=== PATIENT | female | born 1990 | race Caucasian/White ===

== ENCOUNTER 2017-02-11 14:58 | Emergency (ER) | payer MEDICAID ==
[2017-02-11 15:57] VITALS: BP 142/76
--- NOTE | 2017-02-14 14:00 | ER ---
DATE SEEN: 02/11/2017 CHIEF COMPLAINT: Cough. HISTORY: This 26-year-old, 20-week gestation, 2, para 1-0-0-0 single mother, nonsmoker, has not been feeling well for the last week. She notes she had a respiratory infection when coughing. Denies fever, shortness of breath, dyspnea on exertion, productive cough, chest pain, irregular heartbeat, syncope, near syncope, swelling in her ankles, history of DVTs, no previous surgery in the last 4 weeks or lying in bed for 3 days. PAST MEDICAL HISTORY: Negative. ALLERGIES: Negative. CURRENT MEDICATIONS: vitamins. REVIEW OF SYSTEMS: Otherwise negative. She has poor dentition. PHYSICAL EXAMINATION: VITAL SIGNS: Heart rate 86, respirations 16, blood pressure 110/76, 100% oxygen saturation on room air, temperature is 36.8 degrees centigrade. GENERAL: Alert mildly overweight woman with extensive carious teeth. I did not ask her if she had used amphetamines, but there is a suggestion that she might have used amphetamines in the past. No previous amphetamine use. She has bad teeth, but she denies using amphetamines. No cervical adenopathy. No thyromegaly. LUNGS: Clear to auscultation without rales, rhonchi, or wheezes. HEART: S1, S2. Regular rate and rhythm. No tachycardia. ABDOMEN: Soft. Fundus not measured, but quick-look ultrasound done. Fetus also demonstrates heart rate 140s and good heart rate. Male genitalia. Placenta superior. No evidence for placenta previa. EXTREMITIES: Without edema. No tenderness of vascular structures in lower extremities. ASSESSMENT: 1) Cough. 2) Cough secondary to viral upper respiratory and lower respiratory infection. 3) Nonsmoker. 4) 23-week gestation. 5) The size of baby suggests it is larger than this and/or could be macrosomia. PLAN: Use face mask. No medications during . No cough suppressants. No other kind of cough suppressants and drinks two quarts of water a day. Follow up with doctor in a week if not improved. For pain and discomfort use Tylenol, absolutely no ibuprofen. The patient was seen at 1515 hours. /[id number] LIANNE/SABAS CURRY
== END 2017-02-11 15:50 | disposition home or self-care (01) ==
LOC: FB.ED 14:58
DX: O99.512 Diseases of the respiratory system complicating pregnancy, second trimester (principal); J06.9 Acute upper respiratory infection, unspecified; Z86.718 Personal history of other venous thrombosis and embolism; Z3A.23 23 weeks gestation of pregnancy
CPT/HCPCS: 99282

== ENCOUNTER 2017-12-21 12:38 | Emergency (ER) | payer MEDICAID, OTHER ==
[2017-12-21] MEDS ORDERED: Ibuprofen 600 MG Tab PO ONE (12:59)
--- NOTE | 2017-12-21 13:02 | EDM.PDOC ---
ED HPI GENERAL MEDICAL PROBLEM - General Chief Complaint: Lower Extremity Injury/Pain Stated Complaint: TWISTED HER KNEE Time Seen by Provider: 12/21/17 13:00 Source of Information: Reports: Patient History Limitations: Reports: No Limitations - History of Present Illness INITIAL COMMENTS - FREE TEXT/NARRATIVE: Popped knee (per usual) and twisted at same time. Complains of medial left knee pain. Onset: Today Location: Reports: Upper Extremity, Left Quality: Reports: Dull Severity: Mild Improves with: Reports: None Worsens with: Reports: None - Related Data Allergies Allergy/AdvReac Type Severity Reaction Status Date / Time No Known Allergies Allergy Verified 12/21/17 13:29 Home Meds: Home Meds Acetaminophen/Diphenhydramine [Tylenol Pm Ex-Strength Caplet] 2 tab PO ASDIRECTED 02/11/17 [History] PNV95/Ferrous Fumarate/FA [ Tablet] 1 tab PO DAILY 02/11/17 [History] Past Medical History Other HEENT History: CYST IN EAR/HEARING AIDE. CLEFT LIP/PALATE - Past Surgical History Other HEENT Surgeries/Procedures: CYST REMOVAL IN EAR. /CLEFT LIP/PALATE Social & Family History - Family History Family Medical History: Noncontributory - Caffeine Use Caffeine Use: Reports: Coffee Review of Systems - Review of Systems Review Of Systems: ROS reveals no pertinent complaints other than HPI. ED EXAM, GENERAL - Physical Exam Exam: See Below Exam Limited By: No Limitations General Appearance: Alert, WD/WN, No Apparent Distress Nose: Normal Inspection Throat/Mouth: Normal Inspection Head: Atraumatic, Normocephalic Neck: Normal Inspection Respiratory/Chest: No Respiratory Distress Extremities: Limited Range of Motion (due to pain), Other (moderate tenderness to anteromedial left knee) Psychiatric: Normal Affect Skin Exam: Warm, Dry Course - Orders/Labs/Meds Orders: Active Orders 24 hr Category Date Time Status Arnulfo Bandage [RC] ONETIME Care 12/21/17 13:54 Ordered Knee 3V Lt [CR] Stat Exams 12/21/17 12:58 Taken Meds: Medications Discontinued Medications Generic Name Dose Route Start Last Admin Trade Name Freq PRN Reason Stop Dose Admin Ibuprofen 600 mg 12/21/17 12:59 Motrin PO 12/21/17 13:00 ONETIME ONE - Radiology Interpretation Free Text/Narrative:: Left Knee XR: NAD Departure - Departure Time of Disposition: 13:55 Disposition: Home, Self-Care 01 Condition: Good Clinical Impression: Strain of left knee - Discharge Information Instructions: Knee Sprain, Adult, [id number] Referrals: Cruz Worley MD [Primary Care Provider] - Forms: ED Department Discharge Additional Instructions: OTC Ibuprofen as needed. Ice, elevate, rest. Follow up with orthopedic surgery if symptoms don't improve 3 days. - Problem List & Annotations (1) Strain of left knee SNOMED Code(s): 457860583082 Code(s): S86.912A - STRAIN OF UNSP MUSC/TEND AT LOWER LEG LEVEL, LEFT LEG, INIT Status: Acute Current Visit: Yes Qualifiers: Encounter type: initial encounter Qualified Code(s): S86.912A - Strain of unspecified muscle(s) and tendon(s) at lower leg level, left leg, initial encounter - Problem List Review Problem List Initiated/Reviewed/Updated: Yes - My Orders Last 24 Hours: My Active Orders 12/21/17 12:58 Knee 3V Lt [CR] Stat 12/21/17 13:54 Arnulfo Bandage [RC] ONETIME - Assessment/Plan Last 24 Hours: My Active Orders 12/21/17 12:58 Knee 3V Lt [CR] Stat 12/21/17 13:54 Arnulfo Bandage [RC] ONETIME
--- NOTE | 2017-12-21 15:20 | CR ---
INDICATION: Left knee pain, twisted leg. LEFT KNEE: Three views of the left knee revealed no evidence of a fracture or dislocation. A minimal knee joint effusion may be present with slight prominence at the suprapatellar bursa. No other bone or joint abnormality was suggested. IMPRESSION: Suggestion of a minimal knee joint effusion with no acute fracture or dislocation identified. Report was called to Dr. Schmid at 1407 hours on 12/21/2016. ANTOINETTE
[2017-12-22 07:42] VITALS: BP 127/52
== END 2017-12-21 14:45 | disposition home or self-care (01) ==
LOC: FB.ED 12:38
DX: S86.912A Strain of unspecified muscle(s) and tendon(s) at lower leg level, left leg, initial encounter (principal); X50.1XXA Overexertion from prolonged static or awkward postures, initial encounter
CPT/HCPCS: 73562; 99283; A9270

== ENCOUNTER 2019-02-21 19:51 | Emergency (ER) | payer MEDICAID ==
[2019-02-21 20:06] VITALS: BP 112/69; PULSE 95
[2019-02-21] MEDS ORDERED: Ibuprofen Susp 100 MG/5 ML 5 ML UD Cup PO ONE (20:17)
[2019-02-21] MEDS ORDERED: Dexamethasone 4 MG/ML SDV PO ONE (20:17)
--- NOTE | 2019-02-21 20:17 | EDM.PDOC ---
ED HPI GENERAL MEDICAL PROBLEM - General Chief Complaint: ENT Problem Stated Complaint: TONSIL STONES Time Seen by Provider: 02/21/19 20:00 Source of Information: Reports: Patient History Limitations: Reports: No Limitations - History of Present Illness INITIAL COMMENTS - FREE TEXT/NARRATIVE: 28-year-old female with history of recurring sore throat for the past 2-3 months. She reports that sometimes the pain will sometimes be bilateral and sometimes one side versus the other. She has been seen in the walk-in clinic and by her primary doctor. She was told that she had tonsil stones in the past and she apparently has had negative strep screens related to these sore throats. She was fine until approximately 4 PM today when she developed onset of left-sided sore throat area she reports the pain was quite intense. She rated the pain as a 7/10. It is a sharp pain and seems to radiate to her left ear. The pain is worse with swallowing. No fevers or chills. No nausea or vomiting. No trouble breathing. She reports that she has been extruding some white stuff from her right tonsil previous to today. She apparently massages her tonsils intermittently. There are no other associated signs or symptoms. There are no other modifying factors. Onset: Today (4 PM) Duration: Constant Location: Reports: Neck (Left-sided throat) Quality: Reports: Sharp Severity: Moderate Improves with: Reports: Rest Worsens with: Reports: Other (Swallowing. Palpation.) Context: Reports: Other (No known inciting event.) Associated Symptoms: Reports: No Other Symptoms Treatments RESERVATIONIST: Reports: Other (see below) (Nothing) throat Pain Score (Numeric/FACES): 7 - Related Data Allergies Allergy/AdvReac Type Severity Reaction Status Date / Time No Known Allergies Allergy Verified 12/21/17 13:29 Home Meds: Home Meds NK [No Known Home Meds] 12/22/17 [History] Past Medical History HEENT History: Reports: Hard of Hearing Other HEENT History: CYST IN EAR/HEARING AIDE. CLEFT LIP/PALATE - Past Surgical History HEENT Surgical History: Reports: Myringotomy w Tube(s), Naso-Sinus Surgery, Oral Surgery (Multiple surgeries related to her cleft lip and palate), Other ( See Below) (Multiple left ear surgeries) Other HEENT Surgeries/Procedures: CYST REMOVAL IN EAR. /CLEFT LIP/PALATE Social & Family History - Tobacco Use Smoking Status *Q: Never Smoker - Caffeine Use Caffeine Use: Reports: Coffee - Alcohol Use Alcohol Use Frequency: Rarely - Living Situation & Occupation Occupation: Employed (Works at the [employer] in [place].) ED ROS ENT - Review of Systems Review Of Systems: See Below Constitutional: Reports: No Symptoms HEENT: Reports: Throat Pain (Left sided) Respiratory: Reports: No Symptoms Cardiovascular: Reports: No Symptoms GI/Abdominal: Reports: No Symptoms : Reports: No Symptoms Musculoskeletal: Reports: No Symptoms Skin: Reports: No Symptoms Neurological: Reports: No Symptoms Psychiatric: Reports: Anxiety Hematologic/Lymphatic: Reports: No Symptoms Immunologic: Reports: No Symptoms ED EXAM, ENT - Physical Exam Exam: See Below Exam Limited By: No Limitations General Appearance: Alert, WD/WN, Anxious, Moderate Distress Eye Exam: Bilateral Eye: EOMI, Normal Inspection, PERRL Ears: Normal External Exam, Other (Chronic changes of left ear canal and tympanic membrane both TMs appear noninfected.) Nose: Normal Inspection, Normal Mucousa, No Blood Mouth/Throat: Throat Swelling (Mild tonsillar prominence bilaterally. No erythema.). No: Tonsillar Erythema, Tonsillar Exudates Head: Atraumatic, Normocephalic Neck: Supple, Full Range of Motion, Other (Mildly tender along the left anterior cervical area. No masses. Trachea is midline.) Respiratory/Chest: No Respiratory Distress, Lungs Clear, Normal Breath Sounds, No Accessory Muscle Use, Chest Non-Tender Cardiovascular: Normal Peripheral Pulses, Regular Rate, Rhythm, No JVD GI/Abdominal: Normal Bowel Sounds, Soft, Non-Tender, No Organomegaly, No Mass Back: Normal Inspection Extremities: Normal Inspection, Normal Range of Motion, Non-Tender, No Pedal Edema, Normal Capillary Refill, Pedal Edema Neurological: Alert, Oriented, CN II-XII Intact, Normal Cognition, No Motor/ Sensory Deficits Skin: Warm, Dry, Intact, Normal Color, No Rash Course - Vital Signs Last Recorded V/S: Last Vital Signs Temp 36.7 C 02/21/19 20:00 Pulse 95 02/21/19 20:00 Resp 16 02/21/19 20:00 BP 112/69 02/21/19 20:00 Pulse Ox 98 02/21/19 20:00 - Orders/Labs/Meds Orders: Active Orders 24 hr Category Date Time Status CULTURE STREP A CONFIRMATION [] Stat Lab 02/21/19 20:19 Results STREP SCRN A RAPID W CULT CONF [] Stat Lab 02/21/19 20:19 Results Labs: Rapid strep screen was negative. Meds: Medications Discontinued Medications Generic Name Dose Route Start Last Admin Trade Name Courtney PRN Reason Stop Dose Admin Dexamethasone 8 mg 02/21/19 20:17 02/21/19 20:25 Dexamethasone PO 02/21/19 20:18 8 mg ONETIME ONE Administration Ibuprofen 400 mg 02/21/19 20:17 02/21/19 20:24 Motrin 100 Mg/5 Ml Susp PO 02/21/19 20:18 400 mg ONETIME ONE Administration - Re-Assessments/Exams Free Text/Narrative Re-Assessment/Exam: 02/21/19 20:43: The patient's rapid strep screen was negative. I am unsure why she is having the recurrent episodes of sore throat. I did give the patient Decadron 8 mg by mouth in the emergency department and the patient a take ibuprofen and Tylenol for pain and do warm saltwater gargles. She is encouraged to follow-up with the ENT doctor that has followed her for her ear problems and cleft lip and palate. Departure - Departure Time of Disposition: 20:48 Disposition: Home, Self-Care 01 Condition: Good Clinical Impression: Sore throat - Discharge Information Instructions: Sore Throat, [id number] Referrals: Cruz Worley MD [Primary Care Provider] - Forms: ED Department Discharge Additional Instructions: Your strep screen was negative. We did send the throat swab for confirmatory culture and if it is positive, we will call you. I am unsure why you are having the recurring sore throats. Your throat exam really did not show any significant abnormality. You were given Decadron in the emergency department to help with your pain and perceived swelling. You may also take ibuprofen and Tylenol as needed for pain. You should do warm saltwater gargles. You should follow-up with the chief engineer research in [place] to help you with your ear problems and your cleft lip and palate. Back to the emergency department for ability to swallow liquids, trouble breathing, unrelenting vomiting or any other concerning sign or symptom. - My Orders Last 24 Hours: My Active Orders 02/21/19 20:19 CULTURE STREP A CONFIRMATION [RM] Stat STREP SCRN A RAPID W CULT CONF [RM] Stat - Assessment/Plan Last 24 Hours: My Active Orders 02/21/19 20:19 CULTURE STREP A CONFIRMATION [RM] Stat STREP SCRN A RAPID W CULT CONF [] Stat
== END 2019-02-21 21:10 | disposition home or self-care (01) ==
LOC: FB.ED 19:51
DX: J02.9 Acute pharyngitis, unspecified (principal)
CPT/HCPCS: 87081; 87880; 99283; A9270; J1100

== ENCOUNTER 2020-11-24 23:10 | Emergency (ER) | payer BC, MEDICAID ==
[2020-11-24 23:23] VITALS: BP 154/95; PULSE 86
[2020-11-24] MEDS ORDERED: Amoxicillin/Clavulanate K 875-125 MG Tab PO STA (23:27)
[2020-11-24] MEDS ORDERED: traMADol 50 MG Tab PO STA (23:27)
[2020-11-24] MEDS ORDERED: Acetaminophen 500 MG Tab PO STA (23:27)
--- NOTE | 2020-11-24 23:28 | EDM.PDOC ---
ED HPI GENERAL MEDICAL PROBLEM - General Stated Complaint: LEFT EAR HURTS Time Seen by Provider: 11/24/20 23:15 Source of Information: Reports: Patient History Limitations: Reports: No Limitations - History of Present Illness INITIAL COMMENTS - FREE TEXT/NARRATIVE: Patient presented to the ED because of left ear pain which started this morning. There is no fever or chills, cough or cold symptoms. 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 - Related Data Allergies Allergy/AdvReac Type Severity Reaction Status Date / Time No Known Allergies Allergy Verified 02/21/19 22:07 Home Meds: Home Meds Amoxicillin/Clavulanate K [Augmentin 875-125 MG] 1 tab PO BID #20 tablet 11/24 [Rx] Past Medical History - Past Health History Medical/Surgical History: Denies Medical/Surgical History HEENT History: Reports: Hard of Hearing Other HEENT History: CYST IN EAR/HEARING AIDE. CLEFT LIP/PALATE TAX ACCOUNTANT History: Reports: - Past Surgical History HEENT Surgical History: Reports: Myringotomy w Tube(s), Naso-Sinus Surgery, Oral Surgery (Multiple surgeries related to her cleft lip and palate), Other (See Below) (Multiple left ear surgeries) Other HEENT Surgeries/Procedures: CYST REMOVAL IN EAR. /CLEFT LIP/PALATE Social & Family History - Family History Family Medical History: No Pertinent Family History - Caffeine Use Caffeine Use: Reports: Coffee - Living Situation & Occupation Occupation: Employed (Works at the [employer] in [place].) ED ROS ENT - Review of Systems Review Of Systems: See Below HEENT: Reports: Ear Pain Respiratory: Reports: No Symptoms Cardiovascular: Reports: No Symptoms Endocrine: Reports: No Symptoms GI/Abdominal: Reports: No Symptoms : Reports: No Symptoms Musculoskeletal: Reports: No Symptoms Skin: Reports: No Symptoms Neurological: Reports: No Symptoms ED EXAM, ENT - Physical Exam Exam: See Below Exam Limited By: No Limitations General Appearance: Alert, No Apparent Distress Ears: Normal External Exam, Hearing Grossly Normal, TM Bulging, TM Erythema Nose: Normal Inspection, Normal Mucousa, No Blood Mouth/Throat: Normal Inspection, Normal Gums, Normal Lips, Normal Oropharynx, Normal Teeth Head: Atraumatic, Normocephalic Neck: Normal Inspection, Supple, Non-Tender, Full Range of Motion Respiratory/Chest: No Respiratory Distress, Lungs Clear, Normal Breath Sounds, No Accessory Muscle Use, Chest Non-Tender Cardiovascular: Normal Peripheral Pulses, Regular Rate, Rhythm, No Edema, No Gallop, No JVD, No Murmur, No Rub GI/Abdominal: Normal Bowel Sounds, Soft, Non-Tender, No Organomegaly Rectal (Female) Exam: Normal Exam, Normal Rectal Tone Back: Normal Inspection, Full Range of Motion Course - Vital Signs Text/Narrative:: Tramadol 50 mg,2 po x1 Tylenol 1000 mg po x1 Augmentin 875 mg po x1 Last Recorded V/S: Last Vital Signs Temp 36.7 C 11/24/20 23:19 Pulse 86 11/24/20 23:19 Resp 16 11/24/20 23:19 BP 154/95 H 11/24/20 23:19 Pulse Ox 99 11/24/20 23:19 - Orders/Labs/Meds Meds: Medications Discontinued Medications Generic Name Dose Route Start Last Admin Trade Name Ducq PRN Reason Stop Dose Admin Acetaminophen 1,000 mg 11/24/20 23:27 Acetaminophen 500 Mg Tab PO 11/24/20 23:28 NOW STA Amoxicillin/Clavulanate Potassium 1 tab 11/24/20 23:27 Amoxicillin/Clavulanate K 875-125 Mg Tab PO 11/24/20 23:28 NOW STA Tramadol HCl 100 mg 11/24/20 23:27 Tramadol 50 Mg Tab PO 11/24/20 23:28 NOW STA Departure - Departure Time of Disposition: 23:40 Disposition: Home, Self-Care 01 Condition: Good Clinical Impression: Otitis media, Cholesteatoma - Discharge Information Prescriptions: Amoxicillin/Clavulanate K [Augmentin 875-125 MG] 1 tab PO BID #20 tablet Instructions: Otitis Media, Adult Referrals: PCP,None [Primary Care Provider] - Additional Instructions: Please read discharge instructions on otitis media Increase oral fluids Augmentin 875 mg ywice daily for 10 days Take ibuprofen 800 mg with tylenol 1000 mg every 8 hours as needed for pain Follow up with your ENT as scheduled Sepsis Event Note (ED) - Focused Exam Vital Signs: Vital Signs Temp Pulse Resp BP Pulse Ox 11/24/20 23:19 36.7 C 86 16 154/95 H 99
== END 2020-11-24 23:41 | disposition home or self-care (01) ==
LOC: FB.ED 23:10
DX: H66.92 Otitis media, unspecified, left ear (principal); H71.92 Unspecified cholesteatoma, left ear
CPT/HCPCS: 99282; A9270

== ENCOUNTER 2023-07-29 07:02 | Emergency (ER) | payer MEDICAID, OTHER ==
[2023-07-29] MEDS ORDERED: Ibuprofen 800 MG Tab PO ONE (07:42)
[2023-07-29] MEDS ORDERED: Amoxicillin/Clavulanate K 875-125 MG Tab PO ONE (08:07)
[2023-07-29 08:36] VITALS: BP 122/68; PULSE 89
== END 2023-07-29 08:20 | disposition home or self-care (01) ==
LOC: FB.ED 07:02
DX: J02.0 Streptococcal pharyngitis (principal)
CPT/HCPCS: 87651; 99283; A9270

== ENCOUNTER 2024-03-05 23:00 | Emergency (ER) | payer OTHER ==
[2024-03-05] MEDS ORDERED: Naproxen 250 MG Tab PO ONE (23:01)
[2024-03-05] MEDS ORDERED: Amoxicillin 500 MG Cap PO ONE (23:01)
[2024-03-05 23:55] VITALS: BP 113/70; PULSE 71
== END 2024-03-05 23:35 | disposition home or self-care (01) ==
LOC: FB.ED 23:00
DX: H66.011 Acute suppurative otitis media with spontaneous rupture of ear drum, right ear (principal)
CPT/HCPCS: 99282; 99283; A9270

== ENCOUNTER 2024-03-29 22:04 | Emergency (ER) | payer OTHER ==
[2024-03-29] MEDS: Cefdinir 300 MG Cap PO ONE (23:02)
[2024-03-29 23:30] VITALS: BP 112/85; PULSE 67
== END 2024-03-29 23:08 | disposition home or self-care (01) ==
LOC: FB.ED 22:04
DX: H66.004 Acute suppurative otitis media without spontaneous rupture of ear drum, recurrent, right ear (principal)
CPT/HCPCS: 99283; A9270-GY

== ENCOUNTER 2024-10-01 22:39 | Emergency (ER) | payer OTHER ==
[2024-10-01] MEDS ORDERED: Sodium Chloride 0.9% 10 ML Syringe FLUSH PRN (22:40)
[2024-10-01] MEDS ORDERED: Ondansetron 4 MG Tab.DIS PO ONE (22:40)
[2024-10-01] MEDS ORDERED: Ondansetron 4 MG/2 ML SDV ONE (22:47)
[2024-10-01] MEDS: Ketorolac 30 MG/ML SDV IVPUSH ONE (22:56)
[2024-10-01] MEDS: Sodium Chloride 0.9% 1,000 ML IV SCH (22:57)
[2024-10-01] MEDS: Ondansetron 4 MG/2 ML SDV IVPUSH ONE (22:57)
[2024-10-01] MEDS: Prochlorperazine 10 MG/2 ML SDV IVPUSH ONE (23:03)
[2024-10-01 23:04] LABS: BASOPHILS ABSOLUTE AUTO 0.1 x10-3/uL (0.0-0.1); BASOPHILS PERCENT AUTO 0.6 % (0.2-1.5); EOSINOPHILS ABSOLUTE AUTO 0.1 x10-3/uL (0.0-0.8); EOSINOPHILS PERCENT AUTO 0.5 % (0.6-8.1); HEMATOCRIT 43.2 % (34.2-48.2); HEMOGLOBIN 14.9 g/dL (11.4-15.5); LYMPHOCYTES ABSOLUTE AUTO 1.5 x10-3/uL (1.0-4.4); LYMPHOCYTES PERCENT AUTO 10.8 % (18.4-52.1); MEAN CORPUSCULAR HEMOGLOBIN 28.7 pg (23.9-33.9); MEAN CORPUSCULAR HGB CONC 34.4 g/dL (31.9-34.8); MEAN CORPUSCULAR VOLUME 83.5 fL (76.7-100.5); MEAN PLATELET VOLUME 8.2 fL (7.1-12.4); MONOCYTES ABSOLUTE AUTO 0.9 x10-3/uL (0.3-1.0); NEUTROPHILS PERCENT AUTO 81.1 % (30.8-76.2); PLATELET COUNT,PLT 248 x10(3)uL (151-488); RED BLOOD CELL COUNT 5.18 x10(6)uL (3.60-5.20); RED CELL DISTRIBUTION WIDTH 15.5 % (12.3-16.5); WHITE BLOOD CELL COUNT,WBC 13.5 x10-3/uL (3.0-10.3)
[2024-10-01 23:07] LABS: BLOOD UREA NITROGEN,BUN 14 mg/dL (7-18); CALCIUM 9.6 mg/dL (8.6-10.2); CARBON DIOXIDE,CO2 23 mmol/L (21-32); CHLORIDE,CL 102 mmol/L (100-110); CREATININE 0.7 mg/dL (0.55-1.02); ESTIMATED GFR 116 mL/min (>60); GLUCOSE RANDOM 155 mg/dL (80-116); POTASSIUM,K 3.5 mmol/L (3.5-5.3); SODIUM,NA 141 mmol/L (135-145)
[2024-10-01 23:13] LABS: ALANINE AMINOTRANSFERASE,ALT 40 U/L (12-36); ALBUMIN 4.3 g/dL (3.5-5.2); ALKALINE PHOSPHATASE 49 IU/L (56-112); ASPARTATE AMNIOTRANSFERASE,AST 35 IU/L (5-25); BILIRUBIN TOTAL 0.8 mg/dL (0.1-1.3); PROTEIN TOTAL,TP 8.8 g/dL (6.0-8.0)
[2024-10-01] MEDS: Iopamidol 755 Mg/ML 100 ML Bottle IV SCH (23:28)
[2024-10-02 00:18] VITALS: BP 133/80; PULSE 82
== END 2024-10-02 00:32 | disposition home or self-care (01) ==
LOC: FB.ED 22:39
DX: A08.4 Viral intestinal infection, unspecified (principal); E86.0 Dehydration
CPT/HCPCS: 36415; 74177; 80053; 83690; 85025; 96361; 96374; 96375; 99284; J0780; J1885; J2405; Q0162; Q9967; J7030